=== PATIENT | female | born 1970 | race Caucasian/White ===

== ENCOUNTER 2016-07-14 16:03 | Emergency (ER) | payer OTHER ==
[~2016-07-14] VITALS: Ht 162.6 cm; Wt 95.5 kg
[~2016-07-14 16:03] MED LIST: ACET325T51 PO; DEP500A PO; LAMO50TA PO; PROM25TA14 PO; TRAM50TA2 PO
[2016-07-14 16:16] VITALS: BP 129/85; PULSE 111; RESP 18; O2SAT 97
--- NOTE | 2016-07-14 16:49 | ED.REPORT ---
HPI-Psychiatric Illness Date of Service July 14, 2016 ED Provider: Ruddy Pereira MD Patient is a 46 year old female with a hx of bi-polar and PTSD who presents to the ED for a mental health evaluation. She reports that she is having trouble managing her symptoms and is trying to get into [facility] intensive outpatient therapy. She denies suicidal ideation, homicidal ideation, hallucinations, or any other symptoms. She saw her med repair department manager (Karoline Patterson) yesterday and is supposed to start [facility]. She also has a therapist in [facility]. She was previously admitted for psychiatric reasons 26 years ago. Nursing Notes Stated Complaint: MENTAL HEALTH EVALUATION,BI-POLAR Chief Complaint: Psychiatric Complaint Nursing Notes Reviewed: Yes Allergies: Coded Allergies: metoclopramide (Verified Allergy, Unknown, 07/14/16) morphine (Verified Allergy, Unknown, 02/22/15) ondansetron (Unverified Adverse Reaction, Severe, ITCHING, 02/22/15) Uncoded Allergies: PENICILLIN (Allergy, Unknown, 10/01/14) SULFA (Allergy, Unknown, 10/01/14) TRIMETHOPRIIM (Allergy, Unknown, 10/01/14) Scheduled Divalproex DR (Depakote DR) 500 Mg Tablet 500 MG PO BID Swallowed whole without chewing to avoid local irritation of the mouth and throat. Lamotrigine ER (Lamictal XR) 50 Mg Tab.er.24 50 MG PO DAILY Scheduled PRN Acetaminophen (Acetaminophen) 325 Mg Tablet 325-650 MG PO Q4H PRN PRN For Fever Promethazine (Promethazine) 25 Mg Tablet 25 MG PO Q6H PRN PRN For Nausea Tramadol (Tramadol) 50 Mg Tablet 100 MG PO HS PRN PRN For Pain Tramadol (Tramadol) 50 Mg Tablet 100 MG PO Q6H PRN PRN For Pain Tramadol (Tramadol) 50 Mg Tablet 100 MG PO Q6H PRN PRN For Pain General Time Seen by MD: 16:48 Chief Complaint Other (Mental health evaluation ) Hx Obtained From: Patient Arrived By: Walk-in Risk-Psychiatric Illness Suicide Risk Stratification Suicide Risk Factors - Adult: : Prior psych admission RF Statements: Risk factors reviewed Past Medical History Past Medical History Bipolar PTSD colorectal cancer x3 PE Past Surgical History ileostomy Reports: Cholecystectomy, Hysterectomy Smoking History Never Smoker Review of Systems Review of Systems Note: +mental health eval Psychiatric: Denies: Hallucinations, auditory, Hallucinations, visual, Homicidal ideation, Suicidal ideation Complete sys rev & neg: except as marked. Physical Exam Initial Vital Signs Vital Signs (First) Date Time Temp Pulse Resp B/P Pulse Ox O2 Delivery O2 Flow Rate FiO2 07/14/16 16:16 36.6 111 18 129/85 97 Room Air Initial VS: Reviewed Head / Eyes: Atraumatic, Normocephalic Neck: Full range of motion Skin: Warm, Dry General/Constitutional: Awake, Alert, Well developed Neurologic: Oriented X3, Speech NL Psychiatric: Not suicidal, Not homicidal Abnormal Mood/Affect: Negative: Pressured speech Slightly flat affect Linear, organized answering questions appropriately, future oriented Respiratory / Chest: Breath sounds NL, Breath sounds = bilat, No respiratory distress Cardiovascular: Heart rate NL, Regular rhythm, Heart sounds NL, No gallop, No murmurs, No rubs Abdomen: Soft, Non-tender Ileostomy bag Ecchymosis where pt inject Lovenox Abdominal scars Interpretation & Diagnostics Lab Results Interpretation Test 07/14/16 17:57 Hold Urine Received (Received) Lab Results Interpretation: Urine positive for: Opiates, TCA, Oxycodone, and PCP Urine Preg neg UA: Positive for leukocytes but otherwise unconvincing for UTI Re-Eval/Medical Decision Med Decision/Clinical Course In summary, the patient is a 46-year-old female with past medical history significant for PTSD/bipolar disorder, who presents with an exacerbation of her underlying mental illness in the setting of recent social stressors and not being able to fill new prescription for Latuda. The patient was triaged the acute side of the ED. Nursing notes were reviewed. After initial history and physical exam, I didn't feel the patient required a psychiatric hold. I contacted our psychotherapist social worker who interviewed the patient as well and agreed with the plan. We considered medical etiologies of the patient's symptoms including metabolic and toxicologic and none were found in our history, physical exam or lab workup. There was no indication of significant trauma on exam. No neurologic defecits to suggest [employer] S[employer]OL COORDINATOR mass. I obtained labs including CBC, CMP and UA to eval for organic disease. These tests were negative. I also obtained a serum ETOH level and UDS. Urine positive for: Opiates, TCA, Oxycodone, and PCP Urine Preg neg UA: Positive for leukocytes but otherwise unconvincing for UTI Patient presents with exacerbation of their underlying mental illness, however they currently deny SI/HI. They are somewhat decompensated but not at extreme risk to self or others and thus not holdable. The patient does not desire voluntary admission after discussing further with our psychotherapist social worker. They have outpatient resources in place. Our psychotherapist social worker evaluated the patient and provided further resources and support. We discussed the case and agree that the patient is appropriate for outpatient management at this time. The patient was given strong return precautions including thoughts of hurting self or others. Patient feels reassured, ready for discharge and is in agreement with plan. The patient was given 1 dose of their newly prescribed with food and tolerated this well. They will be able to fill the prescription tomorrow. The patient remained comfortable and hemodynamically stable throughout their ED course. Patient has planned to follow up closely with outpatient mental health providers and good social support. She is comfortable with outpatient management plan. Prior to discharge follow-up and return precautions were reviewed in detail with the patient who verbalized understanding and agreement with the plan. The patient was discharged in stable condition. Re-Evaluation/Progress : Time of Eval: 19:48 )( Re-Eval Psychiatric: No danger to self, No danger to others, No suicidal ideation, No homicidal ideation Re-Evaluation/Progress Note: Rechecked patient. Discussed plan for discharge. Patient understands and agrees with plan. All questions addressed at this time. Consultation : Consulted With: printing worker supervisor Call Returned at: 17:56 Sports Attorney: Will see patient Note: Discussed pt case with psychotherapist social worker. Will see patient. Counseled Regarding: Diagnosis, Lab results, Need for follow-up, When/why to return to ED Discharge & Departure Impression: Primary Impression: PTSD (post-traumatic stress disorder) Additional Impressions: Bipolar disorder Active/Remission status: currently active Current bipolar episode type: mixed Current episode severity: unspecified Qualified Code: F31.60 - Bipolar disorder, current episode mixed, unspecified Noncompliance with medication regimen Acute situational disturbance Disposition: Home Discharge Condition All VS Reviewed: Yes Condition: Stable Additional Instructions: Thank you for seeking care at the emergency room. You were seen today because of your bipolar disorder. I gave him a dose of your latuda. Please fill your prescription tomorrow. You were seen by our psychotherapist social worker and provided with additional resources. You should follow-up with your primary doctor and psychiatrist in the next week. You should return to the ED immediately if you develop thoughts of harming yourself/others, racing thoughts, inability to sleep, if you feel that you are having a medical or psychiatric emergency, if you have fevers, vomiting, cough, shortness of breath, chest pain, lightheadedness, weakness or any other concerning signs or symptoms. Thank you for letting us partake in your care today. Referrals: Kady Macedo MD (PCP) Scribe Attestation Portions of this note were transcribed by Alexis Amaro. I, Dr. Pereira personally performed the history, physical exam and medical decision-making; I reviewed and confirmed the accuracy of the information in the transcribed note. Signed by: Alexis Amaro 07/14/2016, 2001 copies to: Kady Macedo MD, Beck O MD July 14, 2016 16:49 ALEXIS AMARO July 14, 2016 17:53
== END 2016-07-14 20:27 | disposition home or self-care (01) ==
LOC: SED 16:03
DX: F43.10 Post-traumatic stress disorder, unspecified (principal); F31.60 Bipolar disorder, current episode mixed, unspecified; F43.0 Acute stress reaction; F31.9 Bipolar disorder, unspecified; Z91.14 Patient's other noncompliance with medication regimen; Z88.5 Allergy status to narcotic agent; Z88.8 Allergy status to other drugs, medicaments and biological substances